=== PATIENT | female | born 1995 | race Caucasian/White ===

== ENCOUNTER 2025-01-04 10:40 | Emergency (ER) | payer MEDICAID ==
[~2025-01-04] VITALS: Ht 149.9 cm; Wt 59.0 kg
[2025-01-04 10:47] VITALS: O2SAT 99
[2025-01-04 10:49] VITALS: BP 107/75; PULSE 66; RESP 16; TEMP 37.1; O2SAT 98
[2025-01-04] MEDS ORDERED: IBUP-2029 MT (13:08)
[2025-01-04] MEDS: IBUPROFEN 600MG TABLET PO ONE (13:23)
== END 2025-01-04 14:45 | disposition home or self-care (01) ==
LOC: ER 10:40
DX: M25.562 Pain in left knee (principal); M25.462 Effusion, left knee; Z98.890 Other specified postprocedural states; W19.XXXA Unspecified fall, initial encounter; Y93.89 Activity, other specified; Y92.89 Other specified places as the place of occurrence of the external cause; Y99.8 Other external cause status
CPT/HCPCS: 73564; 81025; 99283